=== PATIENT | male | born 2000 | race Caucasian/White ===

== ENCOUNTER 2022-09-07 23:26 | Emergency (ER) | payer OTHER, SELFPAY | END 2022-09-08 01:00 | disposition home or self-care (01) | LOC: ERS 23:26 | DX: S42.001A Fracture of unspecified part of right clavicle, initial encounter for closed fracture (principal); R56.9 Unspecified convulsions; W18.30XA Fall on same level, unspecified, initial encounter | CPT/HCPCS: 71045 ==